=== PATIENT | male | born 1960 | race Caucasian/White ===

== ENCOUNTER 2017-06-15 19:11 | Emergency (ER) | payer MEDICARE ==
[~2017-06-15 19:11] MED LIST: CYMB60CA PO; HYDR-3533 PO; HYDR-3534 PO; IRON27TA PO; LOSA25TA PO; OMEP20TA PO; PREG25 PO; TRAZ50TA12 PO
[2017-06-15 19:40] VITALS: BP 104/68; PULSE 75; RESP 16; O2SAT 99
[2017-06-15 19:41] VITALS: BP 105/70; PULSE 74; RESP 20; O2SAT 95
--- NOTE | 2017-06-15 19:59 | PD ---
HPI Chief Complaint: Neuro Symptoms/ Deficits Time Seen by Provider: 19:50 Travel History International Travel<30 days: No Contact w/Intl Traveler<30days: No Traveled to known affect area: No History of Present Illness HPI 54-year-old male with history of emphysema, right sided nephrectomy, presents to the ER today because he states that for the past week or more he has been having episodes of forgetfulness, dropping things, tremors. He denies any difficulty talking, walking, fevers, vomiting, headaches, or any other symptoms. He drove himself to the ER. He thinks his been going on for a week but he states it could be longer. He is not sure. Modifying Factors: None Associated Signs & Symptoms: Forgetfulness, dropping things, tremors Risk Factors: None PFSH Past Medical History Asthma: No Blood Disorders: No Heart Rhythm Problems: No Cancer: Yes (RIGHT KIDNEY CANCER) Cardiovascular Problems: Yes High Cholesterol: No Chemotherapy: No Chest Pain: No Congestive Heart Failure: No COPD: No Diminished Hearing: No Endocrine: No Gastrointestinal Disorders: No GERD: Yes Genitourinary: Yes (kidney disease, RIGHT KIDNEY REMOVED, LEFT KIDNEY STONES) Hypertension: Yes Immune Disorder: No Implanted Vascular Access Dvce: No Kidney Stones: Yes Neurologic: No Psychiatric: No Reproductive: No Respiratory: Yes (EMPHYSEMA, SLEEP APNEA) Immunizations Current: Yes Radiation Therapy: No Sleep Apnea: Yes Tetanus Vaccination: Unknown Influenza Vaccination: No Past Surgical History Abdominal Surgery: Yes (hernia repair and mesh. ) Cholecystectomy: Yes Genitourinary Surgery: Yes (kidney removed) Joint Replacement: No Pacemaker: No Other Surgery: Yes (KIDNEY REMOVED) Social History Alcohol Use: No Tobacco Use: Yes (1 PPD) Substance Use: No Allergies-Medications (Allergen,Severity, Reaction): Coded Allergies: Tylox (Verified Adverse Reaction, Intermediate, Nausea/Vomiting, 06/15/17) per patient he took Tylox & it gave him GI upset. Reported Meds & Prescriptions Reported Meds & Active Scripts Active Trazodone (Trazodone HCl) 50 Mg Tab 50 Mg PO 1/[address] (Duloxetine HCl) 60 Mg Capdr 60 Mg PO DAILY Lortab (Hydrocodone-Acetaminophen) 7.5-325 Mg Tab 1 Tab PO Q6H PRN Iron (Ferrous Gluconate) 27 Mg Tab 27 Cap PO DAILY Omeprazole 20 Mg Tab 20 Mg PO DAILY Reported Lyrica (Pregabalin) 25 Mg Cap 25 Mg PO DAILY Losartan (Losartan Potassium) 25 Mg Tab 25 Mg PO DAILY Review of Systems Except as stated in HPI: all other systems reviewed are Neg Physical Exam Narrative GENERAL: Well-developed middle age white male patient currently in no acute distress. Awake and oriented 3. SKIN: Focused skin assessment warm/dry. HEAD: Atraumatic. Normocephalic. EYES: Pupils equal and round. No scleral icterus. No injection or drainage. ENT: No nasal bleeding or discharge. Mucous membranes pink and moist. NECK: Trachea midline. No JVD. CARDIOVASCULAR: Regular rate and rhythm. No murmur appreciated. RESPIRATORY: No accessory muscle use. Clear to auscultation. Breath sounds equal bilaterally. GASTROINTESTINAL: Abdomen soft, non-tender, nondistended. Hepatic and splenic margins not palpable. MUSCULOSKELETAL: No obvious deformities. No clubbing. No cyanosis. No edema. NEUROLOGICAL: Awake and alert. No obvious cranial nerve deficits. Motor grossly within normal limits. Normal speech. PSYCHIATRIC: Appropriate mood and affect; insight and judgment normal. Data Data Last Documented VS Vital Signs Date Time Temp Pulse Resp B/P Pulse Ox O2 Delivery O2 Flow Rate FiO2 06/15/17 20:36 92 16 106/61 95 Room Air Orders Electrocardiogram (06/15/17 ) Complete Blood Count With Diff (06/15/17 19:50) Comprehensive Metabolic Panel (06/15/17 19:50) Urinalysis - C+S If Indicated (06/15/17 19:50) Arterial Blood Gas (Abg) (06/15/17 19:50) Ct Brain W/O Iv Contrast(Rout) (06/15/17 19:50) Blood Glucose (06/15/17 19:50) Ecg Monitoring (06/15/17 19:50) Iv Access Insert/Monitor (06/15/17 19:50) Oximetry (06/15/17 19:50) Sodium Chloride 0.9% Flush (Ns Flush) (06/15/17 20:00) Chest, Single Ap (06/15/17 19:51) Labs Laboratory Tests Test 06/15/17 06/15/17 19:40 20:25 White Blood Count 9.0 TH/MM3 Red Blood Count 4.35 MIL/MM3 Hemoglobin 13.2 GM/DL Hematocrit 39.6 % Mean Corpuscular Volume 91.1 FL Mean Corpuscular Hemoglobin 30.3 PG Mean Corpuscular Hemoglobin 33.3 % Concent Red Cell Distribution Width 15.0 % Platelet Count 158 TH/MM3 Mean Platelet Volume 9.3 FL Neutrophils (%) (Auto) 73.4 % Lymphocytes (%) (Auto) 18.5 % Monocytes (%) (Auto) 5.2 % Eosinophils (%) (Auto) 2.1 % Basophils (%) (Auto) 0.8 % Neutrophils # (Auto) 6.5 TH/MM3 Lymphocytes # (Auto) 1.7 TH/MM3 Monocytes # (Auto) 0.5 TH/MM3 Eosinophils # (Auto) 0.2 TH/MM3 Basophils # (Auto) 0.1 TH/MM3 CBC Comment DIFF FINAL Differential Comment Sodium Level 144 MEQ/L Potassium Level 3.5 MEQ/L Chloride Level 116 MEQ/L Carbon Dioxide Level 21.5 MEQ/L Anion Gap 7 MEQ/L Blood Urea Nitrogen 27 MG/DL Creatinine 1.80 MG/DL Estimat Glomerular Filtration 39 ML/MIN Rate Random Glucose 106 MG/DL Calcium Level 7.9 MG/DL Total Bilirubin 0.3 MG/DL Aspartate Amino Transf 45 U/L (AST/SGOT) Alanine Aminotransferase 26 U/L (ALT/SGPT) Alkaline Phosphatase 79 U/L Total Protein 7.1 GM/DL Albumin 3.6 GM/DL Urine Color YELLOW Urine Turbidity CLEAR Urine pH 5.5 Urine Specific [place] 1.027 Urine Protein TRACE mg/dL Urine Glucose (UA) NEG mg/dL Urine Ketones NEG mg/dL Urine Occult Blood NEG Urine Nitrite NEG Urine Bilirubin NEG Urine Leukocyte Esterase NEG Urine Squamous Epithelial 0-5 /hpf Cells Urine Amorphous Sediment SMALL Urine Mucus OCC /lpf Microscopic Urinalysis Comment CULT NOT INDICATED Blood Gas Puncture Site RT RADIAL Blood Gas Patient Temperature 98.6 Blood Gas HCO3 20 mmol/L Blood Gas Base Excess -4.6 mmol/L Blood Gas Oxygen Saturation 90 % Arterial Blood pH 7.38 Arterial Blood Partial 34 mmHG Pressure CO2 Arterial Blood Partial 75 mmHG Pressure O2 Arterial Blood Oxygen Content 16.1 Vol % Arterial Blood 3.6 % Carboxyhemoglobin Arterial Blood Methemoglobin 1.5 % Blood Gas Hemoglobin 12.7 G/DL Oxygen Delivery Device ROOM AIR Blood Gas Inspired Oxygen 21 % MDM Medical Decision Making Medical Screen Exam Complete: Yes Emergency Medical Condition: Yes Medical Record Reviewed: Yes Interpretation(s) EKG shows NSR, no ST elevation or depression, and no arrhythmias. No significant T-wave inversions. Laboratory Tests Test 06/15/17 06/15/17 19:40 20:25 Red Blood Count 4.35 MIL/MM3 (4.50-5.90) Neutrophils (%) (Auto) 73.4 % (16.0-70.0) Chloride Level 116 MEQ/L (98-107) Blood Urea Nitrogen 27 MG/DL (7-18) Creatinine 1.80 MG/DL (0.60-1.30) Estimat Glomerular Filtration 39 ML/MIN (>89) Rate Calcium Level 7.9 MG/DL (8.5-10.1) Aspartate Amino Transf 45 U/L (15-37) (AST/SGOT) Blood Gas HCO3 20 mmol/L (22-26) Blood Gas Base Excess -4.6 mmol/L (-2-2) Arterial Blood Partial 34 mmHG (38-42) Pressure CO2 Last 24 hours Impressions Chest X-Ray 06/15/171950 Signed Impressions: Service Date/Time: Thursday, June 15, 2017 20:02 - CONCLUSION: The lungs are clear. Shamar Lainez MD Head CT 06/15/17 1950 Signed Impressions: Service Date/Time: Thursday, June 15, 2017 20:08 - CONCLUSION: Negative noncontrast CT brain. Shamar Lainez MD Differential Diagnosis Tremors, dropping things, forgetfulnessmetabolic issues versus dementia versus intracranial processes versus CVA versus medication side effect Narrative Course Lab work did not show any significant metabolic issues. Vital signs are stable in the ER. CT of the brain is negative for any signs of acute processes. Patient has no focal neurological deficits. At this point, my plan would be to have the patient follow-up with primary care physician for any ongoing processes. Return for any worsening in symptoms as needed. The plan has been discussed with him and he states understanding. Diagnosis Primary Impression: Disorientation, unspecified Disposition: 01 DISCHARGE HOME Condition: Stable Elier Bar MD Jun 15, 2017 19:59
[2017-06-15] MEDS ORDERED: SODIUM CHLORIDE 0.9% FLUSH 5 ML FLUSH IV FLUSH PRN (20:00)
[2017-06-15 20:08] LABS: AUTOMATED NEUTROPHIL # 6.5 TH/MM3 (1.8-7.7); BASOPHIL # 0.1 TH/MM3 (0-0.2); BASOPHIL % 0.8 % (0.0-2.0); EOSINOPHIL # 0.2 TH/MM3 (0-0.4); EOSINOPHIL % 2.1 % (0.0-4.0); HEMATOCRIT 39.6 % (39.0-51.0); HEMO FLAGS DIFF FINAL; LYMPH % 18.5 % (9.0-44.0); LYMPHOCYTE # 1.7 TH/MM3 (1.0-4.8); MEAN CELL VOLUME 91.1 FL (80.0-100.0); MEAN CORPUSCULAR HEMOGLOBIN 30.3 PG (27.0-34.0); MEAN CORPUSCULAR HGB CONC 33.3 % (32.0-36.0); MONO % 5.2 % (0.0-8.0); NEUT % 73.4 % (16.0-70.0); PLATELET COUNT 158 TH/MM3 (150-450); RED BLOOD COUNT 4.35 MIL/MM3 (4.50-5.90)
--- NOTE | 2017-06-15 20:10 | RADRPT ---
EXAM DATE/TIME: 06/15/2017 20:02 [facility] COMPARISON: CHEST SINGLE AP, December 12, 2014, 9:37. CHEST SINGLE AP, August 20, 2015, 18:38. INDICATIONS : Chest discomfort. MEDICAL HISTORY : None. SURGICAL HISTORY : None. ENCOUNTER: Initial ACUITY: 1 day PAIN SCORE: 7/10 LOCATION: Bilateral chest FINDINGS: A single view of the chest demonstrates the lungs to be symmetrically aerated without evidence of mas s, infiltrate or effusion. The cardiomediastinal contours are unremarkable. Osseous structures are intact. CONCLUSION: The lungs are clear. Shamar Lainez MD on June 15, 2017 at 20:08 Board Certified Radiologist. This report was verified electronically.
[2017-06-15 20:28] LABS: CHLORIDE 116 MEQ/L (98-107); POTASSIUM 3.5 MEQ/L (3.5-5.1); SODIUM (NA) 144 MEQ/L (136-145)
[2017-06-15 20:32] LABS: ANION GAP 7 MEQ/L (5-15); BICARBONATE 21.5 MEQ/L (21.0-32.0); BLOOD UREA NITROGEN 27 MG/DL (7-18)
[2017-06-15 20:35] LABS: ALT (GPT) 26 U/L (12-78); AST (GOT) 45 U/L (15-37); GLOMERULAR FILTRATION RATE 39 ML/MIN (>89)
[2017-06-15 20:36] VITALS: BP 106/61; PULSE 92; RESP 16; O2SAT 95
[2017-06-15 20:36] LABS: TOTAL BILIRUBIN ADULT 0.3 MG/DL (0.2-1.0)
[2017-06-15 20:38] LABS: ALKALINE PHOSPHATASE 79 U/L (45-117)
[2017-06-15 20:40] LABS: BLOOD GAS BASE EXCESS -4.6 mmol/L (-2-2); BLOOD GAS CARBOXYHEMOGLOBIN 3.6 % (0-4); BLOOD GAS HCO3 20 mmol/L (22-26); BLOOD GAS METHEMOGLOBIN 1.5 % (0-2); BLOOD GAS O2 HGB SATURATION 90 % (90-100); BLOOD GAS OXYGEN CONTENT 16.1 Vol % (12.0-20.0); BLOOD GAS PCO2 34 mmHG (38-42); BLOOD GAS PO2 75 mmHG (61-120); BLOOD GAS TOTAL HGB 12.7 G/DL (12.0-16.0); CRITICAL VALUE NO; DRAW SITE RT RADIAL; FIO2 21 %; NUMBER OF ARTERIAL PUNCTURES 1; OXYGEN DEVICE ROOM AIR; STAT YES; TEMP CORR TO 98.6; ULNAR PULSE PRESENT
[2017-06-15 20:52] LABS: BLOOD, URINE NEG (NEG); GLUCOSE,URINE NEG (NEG); KETONE, URINE NEG (NEG); NITRITE,URINE NEG (NEG); PH, URINE 5.5 (5.0-8.5)
--- NOTE | 2017-06-15 20:54 | RADRPT ---
EXAM DATE/TIME: 06/15/2017 20:08 [facility] COMPARISON: CT BRAIN W/O CONTRAST, December 12, 2014, 11:51. INDICATIONS : Altered mental status. Tremors. Memory loss. RADIATION DOSE: 59.88 CTDIvol (mGy) MEDICAL HISTORY : Hypertension. Renal cell carcinoma. Emphysema. SURGICAL HISTORY : Nephrectomy, right. ENCOUNTER: Initial ACUITY: 2 days PAIN SCALE: 0/10 LOCATION: cranial TECHNIQUE: Multiple contiguous axial images were obtained of the head. Using automated exposure control and adj ustment of the mA and/or kV according to patient size, radiation dose was kept as low as reasonably a chievable to obtain optimal diagnostic quality images. DICOM format image data is available electro nically for review and comparison. FINDINGS: CEREBRUM: The ventricles are normal for age. No evidence of midline shift, mass lesion, hemorrhage or acute in farction. No extra-axial fluid collections are seen. POSTERIOR FOSSA: The cerebellum and brainstem are intact. The 4th ventricle is midline. The cerebellopontine angle i s unremarkable. EXTRACRANIAL: The visualized portion of the orbits is intact. SKULL: The calvaria is intact. No evidence of skull fracture. CONCLUSION: Negative noncontrast CT brain. Shamar Lainez MD on June 15, 2017 at 20:48 Board Certified Radiologist. This report was verified electronically.
[2017-06-15 21:02] LABS: URINE COLOR YELLOW (YELLW/STRAW)
[2017-06-15 21:03] LABS: MUCUS URINE OCC /lpf (OCC); SQUAMOUS EPITHELIAL CELL URINE 0-5 /hpf (0-5)
[2017-06-15 21:04] LABS: COMMENT (UR) CULT NOT INDICATED; CULTURE IF INDICATED CULT NOT INDICATED
[2017-06-15 21:21] VITALS: BP 110/63
--- NOTE | 2017-06-16 15:28 | EKG ---
Date Performed: 06/15/2017 Time Performed: 19:25:58 PTAGE: 57 years EKG: Sinus rhythm NORMAL ECG PREVIOUS TRACING : 08/20/2015 20.35 Compared to previous tracing, sinus rate has increased. DOCTOR: Db Joyner Interpretating Date/Time 06/16/2017 15:27:29
== END 2017-06-15 21:39 | disposition home or self-care (01) ==
LOC: PHED 19:11
DX: R41.0 Disorientation, unspecified (principal); R25.1 Tremor, unspecified; I10 Essential (primary) hypertension; F17.200 Nicotine dependence, unspecified, uncomplicated
CPT/HCPCS: 36600; 70450; 71010; 80053; 81001; 82805; 85025; 93005; 99285

== ENCOUNTER 2017-07-11 12:57 | Emergency (ER) | payer OTHER, MEDICARE ==
[~2017-07-11] VITALS: Ht 177.8 cm; Wt 79.0 kg
[~2017-07-11 12:57] MED LIST changes: -HYDR-3533 PO
[2017-07-11 13:09] VITALS: BP 126/72; PULSE 67; RESP 18; TEMP 97.9; O2SAT 97
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
[2017-07-11] MEDS ORDERED: IBUP-232 PO (13:36)
[2017-07-11] MEDS ORDERED: ROBA750T PO (13:36)
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
--- NOTE | 2017-07-11 16:51 | RADRPT ---
EXAM DATE/TIME: 07/11/2017 16:03 [facility] COMPARISON: CHEST SINGLE AP, June 15, 2017, 20:02. INDICATIONS : Cough for 2 months. MEDICAL HISTORY : Chronic obstructive pulmonary disease. Hypertension SURGICAL HISTORY : None. ENCOUNTER: Initial ACUITY: 2 months PAIN SCORE: 5/10 LOCATION: Bilateral chest FINDINGS: Frontal and lateral views of the chest demonstrate a normal-sized cardiac silhouette. There are inter stitial changes in the lower lung zones. No effusion or pneumothorax is identified. No definite airsp ann consolidation is seen. Bones and soft tissues demonstrate no acute finding. CONCLUSION: No definite acute finding is identified. However, there is subtle interstitial opacities in the lower lung zones bilaterally. If symptoms persist consider further characterization with chest CT. Prabhakar Stringer MD on July 11, 2017 at 16:48 Board Certified Radiologist. This report was verified electronically.
[2017-07-11] MEDS ORDERED: AZIT250T3 PO (16:57)
[2017-07-11 17:18] VITALS: BP 134/67
== END 2017-07-11 17:19 | disposition home or self-care (01) ==
LOC: PHEFT 12:57
DX: S16.1XXA Strain of muscle, fascia and tendon at neck level, initial encounter (principal); V89.2XXA Person injured in unspecified motor-vehicle accident, traffic, initial encounter; I10 Essential (primary) hypertension; J44.9 Chronic obstructive pulmonary disease, unspecified; Z85.528 Personal history of other malignant neoplasm of kidney; Z90.49 Acquired absence of other specified parts of digestive tract
CPT/HCPCS: 71020; 72125; 99284